=== PATIENT | female | born 1995 | race Caucasian/White ===

== ENCOUNTER 2023-04-15 21:39 | Day surgery (SDC) | payer SELFPAY ==
[2023-04-15 22:03] VITALS: BMI 32.9
[2023-04-15] MEDS ORDERED: hydrALAZINE 20 MG/ML VIAL SLOW IVP PRN (22:29)
== END 2023-04-15 22:30 | disposition home or self-care (01) ==
LOC: CSHLD/OP 21:39
PROVIDERS: ATTEND Obstetrics & Gynecology
DX: O26.852 Spotting complicating pregnancy, second trimester (principal); Z79.899 Other long term (current) drug therapy; Z88.8 Allergy status to other drugs, medicaments and biological substances; Z3A.22 22 weeks gestation of pregnancy
CPT/HCPCS: 99283